=== PATIENT | female | born 1930 | race Caucasian/White ===

== ENCOUNTER 2016-09-28 15:57 | Inpatient (IN) | payer MEDICARE, MEDICAID ==
[~2016-09-28] VITALS: Ht 154.9 cm; Wt 84.0 kg
[~2016-09-28 15:57] MED LIST: ADVAIR 250/28 DISKUS IH; ADVIL200 MG PO; ALAVERT10 M1 PO; ALBUTEROL0.83 MG/ML IH; AMOXICILLIN 8751 TAB PO; AMOXICILLIN/CLA1 TA1 PO; ATIVAN 0.50.5 MG/TAB PO; ATIVAN0.5 MG PO; ATROVENT I0.2 MG/1 M IH; BACTRIM 400 MG-1 TAB; BACTRIM DS 8001 TAB PO; BENADRYL25 M2 PO; CELEXA 20MG20 MG/TAB PO; CLARITIN 1010 MG/TAB PO; CLIMARA0.05 MG/24 TD; CODEINE PO; COMBIVENT INH14.7 GM IH; DALIRESP500 MCG PO; DESYREL 50MG50 MG PO; DIFLUCAN 100MG100 MG PO; DOXYCYCLINE 10100 MG PO; FLONASE NASAL S16 GM NS; IMODIUM 2MG CAPS2 MG PO; INCRUSE EL62.5 MCG/A IH; IPRATROPIUM BROM3 M1 IH; LASIX 20MG TABL20 MG PO; LEVAQUIN 5500 MG/TA1 PO; LEVAQUIN 750MG750 M1 PO; LEXAPRO10 MG PO; LEXAPRO20 MG PO; LORATADINE1 POW; MACROBID 1100 MG/CAP PO; MEDROL 4MG DOSPA4 MG PO; MUCINEX 60600 MG/TA1 PO; MUCINEX D 600 M1 TER PO; MUCINEX PO; MUCINEX1200 MG PO; NEBULIZER; NEXIUM 40MG40 MG PO; NORCO 325 MG-7.1 TAB PO; NYSTATIN POWDER15 GM TOP; OXYGEN; PHENERGAN W/CO120 M1 PO; PREDNISONE10 MG PO; PREDNISONE20 MG PO; PRILOSEC; PROMETHAZINE V473 M2 PO; PYRIDIUM200 M1 PO; RT ADVAIR 228 DISKUS IH; RT SPIRIVA18 MCG IH; SALINE 45 ML45 ML NS; SALINE NASAL SP45 ML NS; SEROQUEL 1100 MG/TAB PO; SEROQUEL 2525 MG/TAB PO; SINGULAIR; SINGULAIR 110 MG/TAB PO; SODIUM FLUORIDE DE; SPIRIVA INH IH; THEO-24100 MG PO; THEO-DUR 2200 MG/TAB PO; THEODUR 200MG PO; TIZANIDINE; ULTRAM 50MG TAB50 MG PO; UNIPHYL 400MG400 MG PO; VITAMIN D 400400 IU PO; VITAMINS; XOPENEX 0.0.63 MG/3 IH; XOPENEX HF0.045 MG/A IH; XOPENEX0.63 MG/3 IH; ZANAFLEX CAPSULE2 MG PO; ZANAFLEX CAPSULE4 MG PO; ZANAFLEX2 MG PO; ZANTAC 300300 MG PO; ZOFRAN 4MG T4 MG/TAB PO; [UNRECOGNIZED DRUG - OTHER]; [UNRECOGNIZED DRUG - OTHER] PO; [UNRECOGNIZED DRUG - SUPPLY] NS
[2016-09-28 16:38] LABS: VENOUS BLOOD GAS BE 1.2 (-4-4); VENOUS BLOOD GAS SAO2 34.4 % (60-80)
[2016-09-28 16:39] LABS: VENOUS BLOOD GAS SITE VENIPUNCTURE
[2016-09-28 16:41] LABS: INFLUENZA B NEGATIVE
[2016-09-28 16:48] LABS: HEMATOCRIT 50.5 % (37.0-47.0); HEMOGLOBIN 15.8 g/dl (12.5-16.0); MEAN CELL VOLUME 88 fl (80.0-100.0); MEAN CORPUSCULAR HEMOGLOBIN 28 pg (27.0-31.0); MEAN CORPUSCULAR HGB CONC 31 g/dl (33.0-37.0); PLATELET COUNT 479 K/mm3 (130-400); RED BLOOD COUNT 5.73 M/mm3 (4.10-5.30); REDCELL DISTRIBUTION WIDTH-CV 15.5 % (11.5-14.5)
[2016-09-28 16:54] LABS: ADD PATHOLOGY DIFF REVIEW NO; WHITE BLOOD COUNT 20.4 K/mm3 (4.8-10.8)
[2016-09-28 17:02] LABS: BAND 4 % (0-10); BASOPHIL 1 % (0-2); EOSINOPHIL 1 % (0-4); NEUTROPHILS 86 % (42.0-75.2); TOTAL CELLS COUNTED 102
[2016-09-28 17:03] LABS: POLYCHROMASIA 1+
[2016-09-28 17:04] LABS: POIKILOCYTOSIS 2+
[2016-09-28 17:11] LABS: ADJUSTED CALCIUM 9.5 mg/dL (8.4-10.2); ALBUMIN 4.3 gm/dL (3.5-5.0); BILIRUBIN,TOTAL 1.3 mg/dL (0.0-1.0); CALCIUM 9.7 mg/dL (8.4-10.2); CREATININE, serum 0.66 mg/dL (0.52-1.25); POTASSIUM 4.8 mmol/L (3.4-5.0); TOTAL PROTEIN 8.1 gm/dL (6.4-8.2)
[2016-09-28 20:00] VITALS: BP 154/97; PULSE 128; TEMP 98.5
[2016-09-28 20:10] VITALS: BP 134/78; PULSE 130; TEMP 98.5
[2016-09-28 21:09] LABS: SALICYLATE < 1.0 mg/dL
[2016-09-28 21:27] LABS: INR 1.1 (0.8-3.0); PROTHROMBIN TIME 11.8 SECONDS (9.7-12.8)
[2016-09-28 21:30] LABS: TROPONIN-I < 0.012 ng/mL (0.000-0.034)
[2016-09-28 23:37] LABS: PH 5 (5-8); SQUAMOUS EPITHELIAL 0-2 /hpf; URINE APPEARANCE Clear; URINE BACTERIA None Seen /hpf; URINE BILIRUBIN Negative (NEGATIVE); URINE BLOOD 2+ (NEGATIVE); URINE COLOR Yellow; URINE GLUCOSE Negative (NEGATIVE); URINE KETONE Negative (NEGATIVE); URINE RBC 0-2 /hpf; URINE UROBILINOGEN Negative (NEGATIVE); URINE WBC 0-2 /hpf
[2016-09-29] VITALS (184 sets, daily range): BP systolic 97–117; BP diastolic 52–79; PULSE 100–123; TEMP 98–98.9; O2SAT 88–97
[2016-09-29 00:26] LABS: MAGNESIUM 1.9 mg/dL (1.6-2.3); PHOSPHOROUS 3.3 mg/dL (2.5-4.5)
[2016-09-29 05:10] LABS: ARTERIAL BLD GAS O2 SATURATION 95.4 % (92-100); ARTERIAL BLD GAS TCO2 CT 23.8; ARTERIAL BLOOD GAS BASE EXCESS -2.8 (-2-2); ARTERIAL BLOOD GAS HCO3 22.5 meq/L (22-26); ARTERIAL BLOOD GAS PO2 75.3 mmHg (80-100); ARTERIAL BLOOD GAS pH 7.36 (7.35-7.45)
[2016-09-29 05:11] LABS: ALLEN TEST YES; ALLENS TEST RESULT PASS; ATS? YES
[2016-09-29 06:06] LABS: ARTERIAL BLD GAS O2 SATURATION 95.4 % (92-100); ARTERIAL BLD GAS TCO2 CT 23.8; ARTERIAL BLOOD GAS BASE EXCESS -2.8 (-2-2); ARTERIAL BLOOD GAS HCO3 22.5 meq/L (22-26); ARTERIAL BLOOD GAS PHT 7.36 C (7.35-7.45); ARTERIAL BLOOD GAS PO2 75.3 mmHg (80-100); ARTERIAL BLOOD GAS PO2T 75.3 (80-100); ARTERIAL BLOOD GAS pH 7.36 (7.35-7.45); OXYHEMOGLOBIN 93.9 %
[2016-09-29 06:35] LABS: HEMATOCRIT 41.7 % (37.0-47.0); MEAN CELL VOLUME 88 fl (80.0-100.0); MEAN CORPUSCULAR HGB CONC 32 g/dl (33.0-37.0); MEAN PLATELET VOLUME 9.2 fl (7.4-10.4); RED BLOOD COUNT 4.76 M/mm3 (4.10-5.30); REDCELL DISTRIBUTION WIDTH-CV 15.8 % (11.5-14.5)
[2016-09-29 06:50] LABS: ADJUSTED CALCIUM 8.4 mg/dL (8.4-10.2); ALBUMIN 3.4 gm/dL (3.5-5.0); BILIRUBIN,TOTAL 1.3 mg/dL (0.0-1.0); CALCIUM 7.9 mg/dL (8.4-10.2); CREATININE, serum 0.67 mg/dL (0.52-1.25); POTASSIUM 4.6 mmol/L (3.4-5.0); TOTAL PROTEIN 6.5 gm/dL (6.4-8.2)
[2016-09-29 07:12] LABS: VENOUS BLOOD GAS BE 0.7 (-4-4); VENOUS BLOOD GAS SAO2 70.2 % (60-80)
[2016-09-29 07:23] LABS: HEMOGLOBIN 13.2 g/dl (12.5-16.0); INR 1.2 (0.8-3.0); MEAN CORPUSCULAR HEMOGLOBIN 28 pg (27.0-31.0); PLATELET COUNT 378 K/mm3 (130-400); PROTHROMBIN TIME 13.4 SECONDS (9.7-12.8); WHITE BLOOD COUNT 28.7 K/mm3 (4.8-10.8)
[2016-09-29 07:24] LABS: ADD PATHOLOGY DIFF REVIEW NO
[2016-09-29 11:28] LABS: VENOUS BLOOD GAS BE -2.8 (-4-4); VENOUS BLOOD GAS SAO2 47.8 % (60-80)
[2016-09-29 12:25] LABS: ATS? YES
[2016-09-29 13:19] LABS: ANISOCYTOSIS 1+; BAND 20 % (0-10); NEUTROPHILS 77 % (42.0-75.2); PLATELET ESTIMATE NORMAL (NORMAL); TOTAL CELLS COUNTED 100; TOXIC GRANULATION PRESENT
[2016-09-29 16:58] LABS: VENOUS BLOOD GAS BE -2.5 (-4-4); VENOUS BLOOD GAS SAO2 75.8 % (60-80)
[2016-09-29 16:59] LABS: VENOUS BLOOD GAS SITE CENTRAL LINE
[2016-09-29 17:00] LABS: VENOUS BLOOD GAS SITE CENTRAL LINE
[2016-09-29 17:00] LABS: VENOUS BLOOD GAS SITE CENTRAL LINE
[2016-09-29 20:51] LABS: VENOUS BLOOD GAS BE -2.5 (-4-4); VENOUS BLOOD GAS SAO2 76.6 % (60-80)
[2016-09-29 20:52] LABS: VENOUS BLOOD GAS SITE CENTRAL LINE
[2016-09-30] VITALS (712 sets, daily range): BP systolic 100–136; BP diastolic 54–92; PULSE 92–120; TEMP 97.3–98; O2SAT 88–100
[2016-09-30 05:27] LABS: BASO % 0.2 % (0.0-2.0); EOS % 0.1 % (0-4.0); GRAN # 16.8 (1.4-6.5); GRAN % 90.9 % (42.2-75.2); LYMPH # 0.9 (1.2-3.4); LYMPH % 4.7 % (20.0-51.0); MEAN CELL VOLUME 87 fl (80.0-100.0); MEAN CORPUSCULAR HEMOGLOBIN 28 pg (27.0-31.0); MEAN CORPUSCULAR HGB CONC 32 g/dl (33.0-37.0); MEAN PLATELET VOLUME 9.2 fl (7.4-10.4); MONO # 0.6 (0.1-0.6); MONO % 3.2 % (1.7-9.3); PLATELET COUNT 369 K/mm3 (130-400); RED BLOOD COUNT 4.25 M/mm3 (4.10-5.30); WHITE BLOOD COUNT 18.5 K/mm3 (4.8-10.8)
[2016-09-30 05:34] LABS: HEMOGLOBIN 11.7 g/dl (12.5-16.0)
[2016-09-30 05:40] LABS: ADJUSTED CALCIUM 8.2 mg/dL (8.4-10.2); ALBUMIN 3.2 gm/dL (3.5-5.0); BILIRUBIN,TOTAL 0.9 mg/dL (0.0-1.0); CALCIUM 7.6 mg/dL (8.4-10.2); CREATININE, serum 0.61 mg/dL (0.52-1.25); POTASSIUM 4.1 mmol/L (3.4-5.0); TOTAL PROTEIN 6.2 gm/dL (6.4-8.2)
[2016-09-30 05:48] LABS: INR 1.1 (0.8-3.0); PROTHROMBIN TIME 12.3 SECONDS (9.7-12.8)
[2016-09-30 06:01] LABS: ARTERIAL BLD GAS O2 SATURATION 95.3 % (92-100); ARTERIAL BLD GAS TCO2 CT 24.4; ARTERIAL BLOOD GAS BASE EXCESS -1.3 (-2-2); ARTERIAL BLOOD GAS HCO3 23.2 meq/L (22-26); ARTERIAL BLOOD GAS PO2 76.1 mmHg (80-100); ARTERIAL BLOOD GAS PO2T 76.1 (80-100); OXYHEMOGLOBIN 94.6 %
[2016-09-30 06:03] LABS: ALLEN TEST YES; ALLENS TEST RESULT PASS; ATS? YES
[2016-10-01] VITALS (54 sets, daily range): BP systolic 128–165; BP diastolic 73–110; PULSE 94–124; TEMP 97.6–98.3; O2SAT 90–96
[2016-10-01 05:22] LABS: BASO % 0.2 % (0.0-2.0); GRAN % 94.1 % (42.2-75.2); LYMPH # 0.3 (1.2-3.4); LYMPH % 2.4 % (20.0-51.0); MEAN CELL VOLUME 89 fl (80.0-100.0); MEAN CORPUSCULAR HGB CONC 32 g/dl (33.0-37.0); MEAN PLATELET VOLUME 9.2 fl (7.4-10.4); MONO # 0.2 (0.1-0.6); MONO % 1.9 % (1.7-9.3); PLATELET COUNT 353 K/mm3 (130-400); RED BLOOD COUNT 4.02 M/mm3 (4.10-5.30); REDCELL DISTRIBUTION WIDTH-CV 16.2 % (11.5-14.5); WHITE BLOOD COUNT 12.8 K/mm3 (4.8-10.8)
[2016-10-01 05:37] LABS: ALBUMIN 3.2 gm/dL (3.5-5.0); BILIRUBIN,TOTAL 0.7 mg/dL (0.0-1.0); CALCIUM 7.4 mg/dL (8.4-10.2); CREATININE, serum 0.52 mg/dL (0.52-1.25); POTASSIUM 4.1 mmol/L (3.4-5.0); TOTAL PROTEIN 6.1 gm/dL (6.4-8.2)
[2016-10-01 05:49] LABS: HEMATOCRIT 35.6 % (37.0-47.0); HEMOGLOBIN 11.2 g/dl (12.5-16.0); MEAN CORPUSCULAR HEMOGLOBIN 28 pg (27.0-31.0)
[2016-10-01 05:49] LABS: ARTERIAL BLD GAS O2 SATURATION 94.3 % (92-100); ARTERIAL BLD GAS TCO2 CT 23.4; ARTERIAL BLOOD GAS HCO3 22.1 meq/L (22-26); ARTERIAL BLOOD GAS PHT 7.36 C (7.35-7.45); ARTERIAL BLOOD GAS PO2 72.6 mmHg (80-100); ARTERIAL BLOOD GAS PO2T 72.6 (80-100); ARTERIAL BLOOD GAS pH 7.36 (7.35-7.45); OXYHEMOGLOBIN 93.5 %
[2016-10-01 05:52] LABS: ALLEN TEST YES; ALLENS TEST RESULT PASS; ATS? YES
[2016-10-01 06:17] LABS: INR 1.1 (0.8-3.0); PROTHROMBIN TIME 12.4 SECONDS (9.7-12.8)
[2016-10-02] VITALS (7 sets, daily range): BP systolic 139–162; BP diastolic 73–92; PULSE 104–118; TEMP 97.5–98.1
[2016-10-03 05:01] VITALS: BP 139/85; PULSE 99; TEMP 98.8
[2016-10-03 08:01] VITALS: BP 166/87; PULSE 104; TEMP 97.8
[2016-10-03 11:51] VITALS: BP 139/86; PULSE 115; TEMP 98
[2016-10-03] MEDS ORDERED: PREDNISONE20 MG PO (12:12)
[2016-10-03] MEDS ORDERED: ZITHROMAX 250M250 MG PO (12:13)
[2016-10-03 13:38] VITALS: BP 139/86; PULSE 115; TEMP 98
== END 2016-10-03 14:00 | DRG 871 ==
LOC: COL.ER 15:57 → IMCU 17:42 → MEDICAL 17:42 → ICU 17:42 → IMCU 09-29 13:26 → MEDICAL 10-01 15:26
PROVIDERS: Emergency Medicine; Internal Medicine; Internal Medicine Pulmonary Disease
PROC: 0BJ08ZZ Inspection of Tracheobronchial Tree, Via Natural or Artificial Opening Endoscopic (ICD-10-PCS; 2016-09-30)
PROC: 0B9B8ZX Drainage of Left Lower Lobe Bronchus, Via Natural or Artificial Opening Endoscopic, Diagnostic (ICD-10-PCS; principal; 2016-09-30 12:00)
DX: A41.9 Sepsis, unspecified organism (principal); J96.22 Acute and chronic respiratory failure with hypercapnia; J96.21 Acute and chronic respiratory failure with hypoxia; J18.9 Pneumonia, unspecified organism; J44.0 Chronic obstructive pulmonary disease with (acute) lower respiratory infection; J44.1 Chronic obstructive pulmonary disease with (acute) exacerbation; J98.11 Atelectasis; Z66 Do not resuscitate; Z87.891 Personal history of nicotine dependence; Z85.118 Personal history of other malignant neoplasm of bronchus and lung; B34.2 Coronavirus infection, unspecified
CPT/HCPCS: 99223-AI; 99232-AI; 99239; A4315; C9113; J0692; J1650; J1720; J1815; J1956; J2060; J2185; J2543; J2704; J2920; J2930; J3370; J7030; J7040; J7050; J7512

== ENCOUNTER 2017-01-29 20:42 | Emergency (ER) | payer MEDICARE, MEDICAID ==
[~2017-01-29] VITALS: Ht 152.4 cm; Wt 72.7 kg
[~2017-01-29 20:42] MED LIST changes: +ZITHROMAX 250M250 MG PO
[2017-01-29] MEDS ORDERED: EFFEXOR-XR150 MG PO (21:15)
[2017-01-29] MEDS ORDERED: DALIRESP500 MCG PO (21:16)
[2017-01-29 21:29] LABS: BASO # 0.1 (0.0-0.2); BASO % 0.7 % (0.0-2.0); EOS # 0.2 (0.0-0.7); EOS % 2.3 % (0-4.0); GRAN # 5.4 (1.4-6.5); GRAN % 66.8 % (42.2-75.2); HEMATOCRIT 50.3 % (37.0-47.0); HEMOGLOBIN 16.3 g/dl (12.5-16.0); LYMPH # 1.7 (1.2-3.4); LYMPH % 20.9 % (20.0-51.0); MEAN CELL VOLUME 85 fl (80.0-100.0); MEAN CORPUSCULAR HEMOGLOBIN 28 pg (27.0-31.0); MEAN CORPUSCULAR HGB CONC 32 g/dl (33.0-37.0); MEAN PLATELET VOLUME 9.4 fl (7.4-10.4); MONO # 0.7 (0.1-0.6); MONO % 8.9 % (1.7-9.3); PLATELET COUNT 461 K/mm3 (130-400); RED BLOOD COUNT 5.91 M/mm3 (4.10-5.30); REDCELL DISTRIBUTION WIDTH-CV 13.9 % (11.5-14.5); WHITE BLOOD COUNT 8.1 K/mm3 (4.8-10.8)
[2017-01-29 21:33] VITALS: TEMP 98.4
[2017-01-29 21:40] LABS: PH 5 (5-8); URINE APPEARANCE Clear; URINE BACTERIA None Seen /hpf; URINE BILIRUBIN Negative (NEGATIVE); URINE BLOOD 2+ (NEGATIVE); URINE COLOR Yellow; URINE GLUCOSE Negative (NEGATIVE); URINE KETONE Trace (NEGATIVE); URINE UROBILINOGEN Negative (NEGATIVE); URINE WBC 0-2 /hpf
[2017-01-29 21:51] LABS: ADJUSTED CALCIUM 9.6 mg/dL (8.4-10.2); ALANINE AMINOTRANSFERASE 21 U/L (9-52); ALBUMIN 4.3 gm/dL (3.5-5.0); ALKALINE PHOSPHATASE 73 U/L (50-136); ANION GAP 14 mmol/L (7-16); BLOOD UREA NITROGEN 10 mg/dL (7-17); CALCIUM 9.8 mg/dL (8.4-10.2); CARBON DIOXIDE 26 mmol/L (22-30); CHLORIDE 95 mmol/L (98-107); CREATININE, serum 0.74 mg/dL (0.52-1.25); GLUCOSE 99 mg/dL (74-106); LIPASE 158 U/L (23-300); POTASSIUM 4.1 mmol/L (3.4-5.0); SODIUM 135 mmol/L (137-145); TOTAL PROTEIN 7.5 gm/dL (6.4-8.2)
[2017-01-29 22:03] LABS: TROPONIN-I < 0.012 ng/mL (0.000-0.034)
[2017-01-29 23:41] VITALS: BP 139/94; PULSE 100
== END 2017-01-29 23:43 | disposition home or self-care (01) ==
LOC: COL.ER 20:42
PROVIDERS: Emergency Medicine
DX: R10.31 Right lower quadrant pain (principal); R41.0 Disorientation, unspecified; J44.9 Chronic obstructive pulmonary disease, unspecified; Z87.891 Personal history of nicotine dependence; Z90.710 Acquired absence of both cervix and uterus
CPT/HCPCS: J7030; Q9967

== ENCOUNTER 2017-03-21 13:12 | Emergency (ER) | payer MEDICARE, MEDICAID ==
[~2017-03-21] VITALS: Ht 152.4 cm; Wt 70.9 kg
[~2017-03-21 13:12] MED LIST changes: +EFFEXOR-XR150 MG PO
[2017-03-21 13:18] VITALS: TEMP 98.6
[2017-03-21] MEDS ORDERED: INCRUSE EL62.5 MCG/A IH (13:44)
[2017-03-21] MEDS ORDERED: LEXAPRO20 MG PO (13:44)
[2017-03-21] MEDS ORDERED: PROBIOTIC ACID1 EAC3 PO (13:45)
[2017-03-21 14:07] LABS: BASO # 0.1 (0.0-0.2); BASO % 0.5 % (0.0-2.0); EOS # 0.1 (0.0-0.7); EOS % 0.8 % (0-4.0); GRAN # 8.2 (1.4-6.5); GRAN % 83.1 % (42.2-75.2); HEMATOCRIT 47.4 % (37.0-47.0); LYMPH # 0.8 (1.2-3.4); LYMPH % 7.9 % (20.0-51.0); MEAN CELL VOLUME 84 fl (80.0-100.0); MEAN CORPUSCULAR HEMOGLOBIN 26 pg (27.0-31.0); MEAN CORPUSCULAR HGB CONC 32 g/dl (33.0-37.0); MEAN PLATELET VOLUME 9.5 fl (7.4-10.4); MONO # 0.7 (0.1-0.6); MONO % 7.2 % (1.7-9.3); PLATELET COUNT 424 K/mm3 (130-400); RED BLOOD COUNT 5.68 M/mm3 (4.10-5.30); REDCELL DISTRIBUTION WIDTH-CV 14.6 % (11.5-14.5); WHITE BLOOD COUNT 9.9 K/mm3 (4.8-10.8)
[2017-03-21 14:08] LABS: PROTHROMBIN TIME 10.8 SECONDS (9.7-12.8)
[2017-03-21 14:44] LABS: ADJUSTED CALCIUM 9.2 mg/dL (8.4-10.2); ALANINE AMINOTRANSFERASE 14 U/L (9-52); ALBUMIN 4.1 gm/dL (3.5-5.0); ALKALINE PHOSPHATASE 66 U/L (50-136); ANION GAP 12 mmol/L (7-16); BILIRUBIN,TOTAL 0.5 mg/dL (0.0-1.0); BLOOD UREA NITROGEN 10 mg/dL (7-17); CALCIUM 9.3 mg/dL (8.4-10.2); CARBON DIOXIDE 26 mmol/L (22-30); CHLORIDE 99 mmol/L (98-107); CREATININE, serum 0.73 mg/dL (0.52-1.25); GLUCOSE 158 mg/dL (74-106); POTASSIUM 3.8 mmol/L (3.4-5.0); SODIUM 138 mmol/L (137-145); TOTAL PROTEIN 7.3 gm/dL (6.4-8.2)
[2017-03-21 14:56] LABS: TROPONIN-I < 0.012 ng/mL (0.000-0.034)
[2017-03-21 15:57] VITALS: BP 122/81; PULSE 97
== END 2017-03-21 15:45 | disposition home or self-care (01) ==
LOC: COL.ER 13:12
PROVIDERS: Emergency Medicine
DX: G45.9 Transient cerebral ischemic attack, unspecified (principal); M62.81 Muscle weakness (generalized); R20.0 Anesthesia of skin; R47.81 Slurred speech; J44.9 Chronic obstructive pulmonary disease, unspecified; Z87.891 Personal history of nicotine dependence; Z90.710 Acquired absence of both cervix and uterus; Z85.118 Personal history of other malignant neoplasm of bronchus and lung

== ENCOUNTER 2017-03-26 11:07 | Emergency (ER) | payer MEDICARE, MEDICAID ==
[~2017-03-26] VITALS: Ht 152.4 cm; Wt 69.1 kg
[~2017-03-26 11:07] MED LIST changes: +PROBIOTIC ACID1 EAC3 PO
[2017-03-26 11:13] VITALS: TEMP 98.4
[2017-03-26 12:37] VITALS: BP 133/80; PULSE 91
== END 2017-03-26 12:38 | disposition home or self-care (01) ==
LOC: COL.ER 11:07
DX: S60.222A Contusion of left hand, initial encounter (principal); W19.XXXA Unspecified fall, initial encounter

== ENCOUNTER → 2017-12-26 | Outpatient (CLI) | payer MEDICARE, MEDICAID | LOC: MC.RAD 10:27 | DX: Z12.31 Encounter for screening mammogram for malignant neoplasm of breast (principal) ==

== ENCOUNTER 2018-05-19 16:56 | Inpatient (IN) | payer MEDICARE, MEDICAID ==
[~2018-05-19] VITALS: Ht 152.4 cm; Wt 77.9 kg
[2018-05-19 17:49] LABS: BASO # 0.1 (0.0-0.2); BASO % 0.5 % (0.0-2.0); EOS # 0.1 (0.0-0.7); EOS % 0.5 % (0-4.0); GRAN # 11.5 (1.4-6.5); HEMATOCRIT 45.9 % (37.0-47.0); HEMOGLOBIN 14.4 g/dl (12.5-16.0); LYMPH # 0.7 (1.2-3.4); LYMPH % 5.5 % (20.0-51.0); MEAN CELL VOLUME 88 fl (80.0-100.0); MEAN CORPUSCULAR HEMOGLOBIN 28 pg (27.0-31.0); MEAN CORPUSCULAR HGB CONC 31 g/dl (33.0-37.0); MEAN PLATELET VOLUME 9.7 fl (7.4-10.4); MONO # 0.8 (0.1-0.6); MONO % 6.1 % (1.7-9.3); PLATELET COUNT 439 K/mm3 (130-400); RED BLOOD COUNT 5.23 M/mm3 (4.10-5.30); REDCELL DISTRIBUTION WIDTH-CV 14.4 % (11.5-14.5)
[2018-05-19 17:55] LABS: BILIRUBIN,TOTAL 0.9 mg/dL (0.0-1.0); CALCIUM 8.9 mg/dL (8.4-10.2); CREATININE, serum 0.72 mg/dL (0.52-1.25); POTASSIUM 4.1 mmol/L (3.4-5.0); TOTAL PROTEIN 7.3 gm/dL (6.4-8.2)
[2018-05-19] MEDS ORDERED: FLONASE SENSIM9.9 ML NS (21:20)
[2018-05-19] MEDS ORDERED: NEURONTIN300 MG/CAP PO (21:21)
[2018-05-19] MEDS ORDERED: PATADAY 2.5 ML2.5 ML OU (21:26)
[2018-05-19 22:09] VITALS: BP 132/82; PULSE 117; TEMP 99.1
[2018-05-19] MEDS ORDERED: BENGAY TP (23:14)
[2018-05-20 02:23] VITALS: BP 127/75; PULSE 108; TEMP 98.2
[2018-05-20 04:23] VITALS: BP 170/64; PULSE 101; TEMP 98.2
[2018-05-20 06:52] LABS: HEMATOCRIT 46.8 % (37.0-47.0); HEMOGLOBIN 14.6 g/dl (12.5-16.0); MEAN CELL VOLUME 87 fl (80.0-100.0); MEAN CORPUSCULAR HEMOGLOBIN 27 pg (27.0-31.0); MEAN CORPUSCULAR HGB CONC 31 g/dl (33.0-37.0); MEAN PLATELET VOLUME 9.8 fl (7.4-10.4); PLATELET COUNT 410 K/mm3 (130-400); RED BLOOD COUNT 5.36 M/mm3 (4.10-5.30); REDCELL DISTRIBUTION WIDTH-CV 14.3 % (11.5-14.5)
[2018-05-20 07:11] LABS: CALCIUM 8.6 mg/dL (8.4-10.2); CREATININE, serum 0.58 mg/dL (0.52-1.25); POTASSIUM 4.4 mmol/L (3.4-5.0)
[2018-05-20 07:18] LABS: BAND 10 % (0-10); BASOPHIL 1 % (0-2); LYMPHOCYTE 2 % (20.0-51.0); NEUTROPHILS 86 % (42.0-75.2); PLATELET ESTIMATE INCREASED (NORMAL)
[2018-05-20 08:44] VITALS: BP 112/59; PULSE 115; TEMP 98.2
[2018-05-20 11:14] VITALS: BP 112/56; PULSE 112; TEMP 98.2
[2018-05-20 15:58] VITALS: BP 109/52; PULSE 119; TEMP 98.2
[2018-05-20 17:19] LABS: COLLECTION METHOD CLEAN CATCH
[2018-05-20 17:29] LABS: MUCOUS Present /lpf; PH 5 (5-8); URINE APPEARANCE Hazy; URINE BACTERIA None Seen /hpf; URINE BILIRUBIN Negative (NEGATIVE); URINE BLOOD 1+ (NEGATIVE); URINE COLOR Yellow; URINE GLUCOSE Negative (NEGATIVE); URINE KETONE Trace (NEGATIVE); URINE LEUKOCYTE ESTERASE Negative (NEGATIVE); URINE NITRATE Negative (NEGATIVE); URINE PROTEIN(semi-quant) 1+ (NEGATIVE); URINE UROBILINOGEN Negative (NEGATIVE)
[2018-05-20 20:15] VITALS: BP 107/75; PULSE 110; TEMP 97.5
[2018-05-21 00:14] VITALS: BP 111/50; PULSE 17; TEMP 98.5
[2018-05-21 00:48] VITALS: BP 105/67; PULSE 75; TEMP 97.2
[2018-05-21 06:24] LABS: HEMATOCRIT 45.8 % (37.0-47.0); HEMOGLOBIN 14.3 g/dl (12.5-16.0); MEAN CELL VOLUME 87 fl (80.0-100.0); MEAN CORPUSCULAR HEMOGLOBIN 27 pg (27.0-31.0); MEAN CORPUSCULAR HGB CONC 31 g/dl (33.0-37.0); MEAN PLATELET VOLUME 10.1 fl (7.4-10.4); PLATELET COUNT 467 K/mm3 (130-400); RED BLOOD COUNT 5.27 M/mm3 (4.10-5.30); REDCELL DISTRIBUTION WIDTH-CV 14.5 % (11.5-14.5)
[2018-05-21 06:33] LABS: CALCIUM 9.4 mg/dL (8.4-10.2); CREATININE, serum 0.65 mg/dL (0.52-1.25); POTASSIUM 4.1 mmol/L (3.4-5.0)
[2018-05-21 07:20] LABS: BAND 24 % (0-10); LYMPHOCYTE 2 % (20.0-51.0); NEUTROPHILS 70 % (42.0-75.2); PLATELET ESTIMATE INCREASED (NORMAL)
[2018-05-21 07:21] LABS: HYPOCHROMIA 2+
[2018-05-21 08:30] VITALS: BP 113/52; PULSE 112; PULSE 45; TEMP 98.8
[2018-05-21 12:02] VITALS: BP 123/59; PULSE 107; TEMP 98.4
[2018-05-21 15:13] VITALS: BP 115/52; PULSE 118; TEMP 98.1
[2018-05-21 19:54] VITALS: BP 138/67; PULSE 116; TEMP 97.8
[2018-05-22 00:25] VITALS: BP 127/78; BP 144/78; PULSE 60; TEMP 97.8
[2018-05-22 06:34] LABS: BASO % 0.1 % (0.0-2.0); GRAN # 11.6 (1.4-6.5); GRAN % 89.8 % (42.2-75.2); HEMATOCRIT 45.1 % (37.0-47.0); LYMPH # 0.5 (1.2-3.4); LYMPH % 4.1 % (20.0-51.0); MEAN CELL VOLUME 87 fl (80.0-100.0); MEAN CORPUSCULAR HEMOGLOBIN 27 pg (27.0-31.0); MEAN CORPUSCULAR HGB CONC 31 g/dl (33.0-37.0); MEAN PLATELET VOLUME 9.8 fl (7.4-10.4); MONO # 0.7 (0.1-0.6); MONO % 5.3 % (1.7-9.3); PLATELET COUNT 488 K/mm3 (130-400); RED BLOOD COUNT 5.18 M/mm3 (4.10-5.30); REDCELL DISTRIBUTION WIDTH-CV 14.6 % (11.5-14.5)
[2018-05-22 06:46] LABS: CALCIUM 9.3 mg/dL (8.4-10.2); CREATININE, serum 0.61 mg/dL (0.52-1.25); POTASSIUM 4.1 mmol/L (3.4-5.0)
[2018-05-22 09:10] VITALS: BP 130/83; PULSE 103; TEMP 98
[2018-05-22] MEDS ORDERED: LEVAQUIN 5500 MG/TA1 PO (09:42)
[2018-05-22] MEDS ORDERED: RT ADVAIR HFA 2312 G IH (09:42)
[2018-05-22] MEDS ORDERED: MUCINEX 60600 MG/TA1 PO (09:43)
[2018-05-22] MEDS ORDERED: PREDNISONE10 MG PO (09:45)
[2018-05-22 12:16] VITALS: BP 131/75; PULSE 108; TEMP 98.1
[2018-05-22] MEDS ORDERED: ZOFRAN ODT4 MG PO (14:23)
== END 2018-05-22 16:05 | disposition home health service (06) | DRG 191 ==
LOC: COL.ER 16:56 → MEDICAL 20:41
PROVIDERS: Emergency Medicine; Internal Medicine; Nurse Practitioner; Physician Assistant
DX: J44.1 Chronic obstructive pulmonary disease with (acute) exacerbation (principal); E87.2 Acidosis; Z66 Do not resuscitate; Z85.110 Personal history of malignant carcinoid tumor of bronchus and lung; G62.9 Polyneuropathy, unspecified; Z87.891 Personal history of nicotine dependence; F41.9 Anxiety disorder, unspecified
CPT/HCPCS: 99223-AI; 99232-AI; G0378; J0692; J1650; J1956; J2405; J2930; J7030; J7512; Q9967

== ENCOUNTER 2018-08-13 15:12 | Inpatient (IN) | payer MEDICARE, MEDICAID ==
[~2018-08-13] VITALS: Ht 152.4 cm; Wt 76.5 kg
[~2018-08-13 15:12] MED LIST changes: +BENGAY TP; +FLONASE SENSIM9.9 ML NS; +NEURONTIN300 MG/CAP PO; +PATADAY 2.5 ML2.5 ML OU; +RT ADVAIR HFA 2312 G IH; +ZOFRAN ODT4 MG PO
[2018-08-13 15:30] VITALS: BP 138/87; PULSE 111; TEMP 98.7
[2018-08-13] MEDS ORDERED: NYAMYC100000 U/G TP (16:24)
[2018-08-13] MEDS ORDERED: GAS RELIEF 8080 MG PO (16:24)
[2018-08-13] MEDS ORDERED: B-121000 MCG PO (16:25)
[2018-08-13] MEDS ORDERED: KLONOPIN 0.5MG0.5 MG PO (16:25)
[2018-08-13] MEDS ORDERED: MONODOX100 PO (16:26)
[2018-08-13] MEDS ORDERED: PREDNISONE10 MG PO (16:27)
[2018-08-13 16:58] LABS: BASO # 0.1 (0.0-0.2); BASO % 0.9 % (0.0-2.0); EOS # 0.2 (0.0-0.7); EOS % 1.3 % (0-4.0); GRAN # 8.1 (1.4-6.5); GRAN % 72.5 % (42.2-75.2); HEMATOCRIT 51.5 % (37.0-47.0); HEMOGLOBIN 16.7 g/dl (12.5-16.0); LYMPH # 1.9 (1.2-3.4); LYMPH % 17.3 % (20.0-51.0); MEAN CELL VOLUME 86 fl (80.0-100.0); MEAN CORPUSCULAR HEMOGLOBIN 28 pg (27.0-31.0); MEAN CORPUSCULAR HGB CONC 32 g/dl (33.0-37.0); MEAN PLATELET VOLUME 9.3 fl (7.4-10.4); MONO # 0.9 (0.1-0.6); MONO % 7.6 % (1.7-9.3); PLATELET COUNT 498 K/mm3 (130-400); RED BLOOD COUNT 6.02 M/mm3 (4.10-5.30); REDCELL DISTRIBUTION WIDTH-CV 15.1 % (11.5-14.5)
[2018-08-13 17:10] LABS: ALBUMIN 4.1 gm/dL (3.5-5.0); BILIRUBIN,TOTAL 0.7 mg/dL (0.0-1.0); CREATININE, serum 0.75 mg/dL (0.52-1.25); POTASSIUM 3.7 mmol/L (3.4-5.0); TOTAL PROTEIN 7.1 gm/dL (6.4-8.2)
[2018-08-13 19:01] VITALS: BP 89/53; PULSE 100; TEMP 98.7
[2018-08-13 22:59] VITALS: BP 103/65; PULSE 95
[2018-08-13 23:02] VITALS: BP 105/61; PULSE 101
[2018-08-13 23:27] VITALS: BP 96/57; PULSE 102; TEMP 97.4
[2018-08-14 03:18] VITALS: BP 131/61; PULSE 90; TEMP 98
[2018-08-14 07:50] LABS: BASO # 0.1 (0.0-0.2); BASO % 0.8 % (0.0-2.0); EOS # 0.2 (0.0-0.7); EOS % 2.8 % (0-4.0); GRAN % 68.6 % (42.2-75.2); HEMATOCRIT 49.5 % (37.0-47.0); HEMOGLOBIN 15.6 g/dl (12.5-16.0); LYMPH # 1.6 (1.2-3.4); LYMPH % 18.2 % (20.0-51.0); MEAN CELL VOLUME 87 fl (80.0-100.0); MEAN CORPUSCULAR HEMOGLOBIN 27 pg (27.0-31.0); MEAN CORPUSCULAR HGB CONC 32 g/dl (33.0-37.0); MEAN PLATELET VOLUME 9.7 fl (7.4-10.4); MONO # 0.8 (0.1-0.6); MONO % 9.1 % (1.7-9.3); PLATELET COUNT 444 K/mm3 (130-400); REDCELL DISTRIBUTION WIDTH-CV 15.4 % (11.5-14.5)
[2018-08-14 08:07] LABS: CALCIUM 9.3 mg/dL (8.4-10.2); CREATININE, serum 0.86 mg/dL (0.52-1.25); POTASSIUM 3.6 mmol/L (3.4-5.0)
[2018-08-14 09:23] VITALS: BP 122/80; PULSE 88; TEMP 98.1
[2018-08-14 11:13] VITALS: BP 97/54; PULSE 84; TEMP 98.3
[2018-08-14 16:00] VITALS: BP 95/45; PULSE 107; TEMP 98
[2018-08-14 20:16] VITALS: BP 117/57; PULSE 95; TEMP 98.1
[2018-08-15] VITALS (7 sets, daily range): BP systolic 88–115; BP diastolic 41–86; PULSE 79–117; TEMP 97.6–98.5
[2018-08-15 07:00] LABS: BASO # 0.1 (0.0-0.2); BASO % 0.6 % (0.0-2.0); EOS # 0.1 (0.0-0.7); EOS % 0.9 % (0-4.0); GRAN # 7.2 (1.4-6.5); GRAN % 73.4 % (42.2-75.2); HEMATOCRIT 48.5 % (37.0-47.0); HEMOGLOBIN 15.2 g/dl (12.5-16.0); LYMPH # 1.7 (1.2-3.4); LYMPH % 17.1 % (20.0-51.0); MEAN CELL VOLUME 87 fl (80.0-100.0); MEAN CORPUSCULAR HEMOGLOBIN 27 pg (27.0-31.0); MEAN CORPUSCULAR HGB CONC 31 g/dl (33.0-37.0); MEAN PLATELET VOLUME 9.4 fl (7.4-10.4); MONO # 0.7 (0.1-0.6); MONO % 7.5 % (1.7-9.3); PLATELET COUNT 445 K/mm3 (130-400); RED BLOOD COUNT 5.59 M/mm3 (4.10-5.30); REDCELL DISTRIBUTION WIDTH-CV 15.4 % (11.5-14.5)
[2018-08-15 07:14] LABS: CALCIUM 9.4 mg/dL (8.4-10.2); CREATININE, serum 0.83 mg/dL (0.52-1.25); POTASSIUM 3.4 mmol/L (3.4-5.0)
[2018-08-16] VITALS (7 sets, daily range): BP systolic 92–135; BP diastolic 49–73; PULSE 87–109; TEMP 97.7–98.4
[2018-08-16 07:53] LABS: BASO # 0.1 (0.0-0.2); BASO % 0.5 % (0.0-2.0); EOS # 0.1 (0.0-0.7); EOS % 1.4 % (0-4.0); GRAN # 7.1 (1.4-6.5); GRAN % 73.3 % (42.2-75.2); HEMATOCRIT 44.9 % (37.0-47.0); HEMOGLOBIN 14.1 g/dl (12.5-16.0); LYMPH # 1.6 (1.2-3.4); LYMPH % 16.8 % (20.0-51.0); MEAN CELL VOLUME 88 fl (80.0-100.0); MEAN CORPUSCULAR HEMOGLOBIN 28 pg (27.0-31.0); MEAN CORPUSCULAR HGB CONC 31 g/dl (33.0-37.0); MEAN PLATELET VOLUME 9.6 fl (7.4-10.4); MONO # 0.7 (0.1-0.6); MONO % 7.4 % (1.7-9.3); PLATELET COUNT 413 K/mm3 (130-400); RED BLOOD COUNT 5.12 M/mm3 (4.10-5.30); REDCELL DISTRIBUTION WIDTH-CV 15.5 % (11.5-14.5)
[2018-08-16 08:01] LABS: CALCIUM 9.2 mg/dL (8.4-10.2); CREATININE, serum 0.79 mg/dL (0.52-1.25); POTASSIUM 3.7 mmol/L (3.4-5.0)
[2018-08-17 04:01] VITALS: BP 135/87; PULSE 89; TEMP 98
[2018-08-17 07:14] VITALS: BP 118/46; PULSE 87; TEMP 98.7
[2018-08-17 07:17] LABS: BASO # 0.1 (0.0-0.2); BASO % 0.6 % (0.0-2.0); EOS # 0.1 (0.0-0.7); EOS % 0.7 % (0-4.0); GRAN # 8.2 (1.4-6.5); GRAN % 76.3 % (42.2-75.2); HEMATOCRIT 44.4 % (37.0-47.0); HEMOGLOBIN 13.9 g/dl (12.5-16.0); LYMPH # 1.6 (1.2-3.4); MEAN CELL VOLUME 87 fl (80.0-100.0); MEAN CORPUSCULAR HEMOGLOBIN 27 pg (27.0-31.0); MEAN CORPUSCULAR HGB CONC 31 g/dl (33.0-37.0); MEAN PLATELET VOLUME 9.8 fl (7.4-10.4); MONO # 0.7 (0.1-0.6); MONO % 6.6 % (1.7-9.3); PLATELET COUNT 473 K/mm3 (130-400); REDCELL DISTRIBUTION WIDTH-CV 15.4 % (11.5-14.5)
[2018-08-17 07:30] LABS: CALCIUM 9.4 mg/dL (8.4-10.2); CREATININE, serum 0.71 mg/dL (0.52-1.25)
[2018-08-17 11:02] VITALS: BP 99/51; PULSE 86; TEMP 98.2
[2018-08-17 15:38] VITALS: BP 115/64; PULSE 113; TEMP 97.8
[2018-08-17 19:11] VITALS: BP 126/79; PULSE 96; TEMP 97.6
[2018-08-18 00:42] VITALS: BP 113/67; PULSE 87; TEMP 97.5
[2018-08-18 03:44] VITALS: BP 125/64; PULSE 87; TEMP 97.6
[2018-08-18 06:24] LABS: BASO # 0.1 (0.0-0.2); BASO % 0.5 % (0.0-2.0); EOS # 0.1 (0.0-0.7); EOS % 0.8 % (0-4.0); GRAN # 7.5 (1.4-6.5); GRAN % 74.9 % (42.2-75.2); HEMATOCRIT 45.3 % (37.0-47.0); HEMOGLOBIN 13.9 g/dl (12.5-16.0); LYMPH # 1.6 (1.2-3.4); LYMPH % 15.4 % (20.0-51.0); MEAN CELL VOLUME 89 fl (80.0-100.0); MEAN CORPUSCULAR HEMOGLOBIN 27 pg (27.0-31.0); MEAN CORPUSCULAR HGB CONC 31 g/dl (33.0-37.0); MEAN PLATELET VOLUME 9.7 fl (7.4-10.4); MONO # 0.7 (0.1-0.6); MONO % 7.2 % (1.7-9.3); PLATELET COUNT 430 K/mm3 (130-400); RED BLOOD COUNT 5.09 M/mm3 (4.10-5.30); REDCELL DISTRIBUTION WIDTH-CV 15.7 % (11.5-14.5)
[2018-08-18 06:48] LABS: CALCIUM 9.2 mg/dL (8.4-10.2); CREATININE, serum 0.86 mg/dL (0.52-1.25); POTASSIUM 4.3 mmol/L (3.4-5.0)
[2018-08-18 07:30] VITALS: BP 108/62; PULSE 86; TEMP 98.2
[2018-08-18] MEDS ORDERED: PREDNISONE10 MG PO (09:36)
[2018-08-18 10:43] VITALS: BP 108/62; PULSE 86; TEMP 98.2
[2018-08-18 10:56] VITALS: BP 94/50; PULSE 99; TEMP 97.6
== END 2018-08-18 14:22 | DRG 194 ==
LOC: MEDICAL 15:12
PROVIDERS: Hospitalist; Physician Assistant
DX: J18.9 Pneumonia, unspecified organism (principal); J44.0 Chronic obstructive pulmonary disease with (acute) lower respiratory infection; E87.3 Alkalosis; Z66 Do not resuscitate; R19.7 Diarrhea, unspecified; G60.9 Hereditary and idiopathic neuropathy, unspecified; F41.9 Anxiety disorder, unspecified; Z85.110 Personal history of malignant carcinoid tumor of bronchus and lung; Z87.891 Personal history of nicotine dependence; I95.9 Hypotension, unspecified
CPT/HCPCS: 99223-AI; 99231-AI; 99233-AI; A4216; A9284; J0692; J1644; J1956; J2405; J7040; J7512; Q9967

== ENCOUNTER 2018-09-03 23:41 | Emergency (ER) | payer MEDICARE, MEDICAID ==
[~2018-09-03] VITALS: Ht 152.4 cm; Wt 77.3 kg
[~2018-09-03 23:41] MED LIST changes: +B-121000 MCG PO; +GAS RELIEF 8080 MG PO; +KLONOPIN 0.5MG0.5 MG PO; +MONODOX100 PO; +NYAMYC100000 U/G TP
[2018-09-03 23:47] VITALS: TEMP 99
[2018-09-04 00:31] LABS: BASO # 0.1 (0.0-0.2); BASO % 0.4 % (0.0-2.0); EOS # 0.2 (0.0-0.7); EOS % 1.8 % (0-4.0); GRAN # 11.1 (1.4-6.5); GRAN % 82.6 % (42.2-75.2); HEMATOCRIT 51.5 % (37.0-47.0); HEMOGLOBIN 15.8 g/dl (12.5-16.0); LYMPH # 0.8 (1.2-3.4); LYMPH % 5.9 % (20.0-51.0); MEAN CELL VOLUME 90 fl (80.0-100.0); MEAN CORPUSCULAR HEMOGLOBIN 28 pg (27.0-31.0); MEAN CORPUSCULAR HGB CONC 31 g/dl (33.0-37.0); MEAN PLATELET VOLUME 9.3 fl (7.4-10.4); MONO % 7.7 % (1.7-9.3); PLATELET COUNT 407 K/mm3 (130-400); RED BLOOD COUNT 5.74 M/mm3 (4.10-5.30); REDCELL DISTRIBUTION WIDTH-CV 15.4 % (11.5-14.5)
[2018-09-04 00:38] LABS: PROTHROMBIN TIME 11.3 SECONDS (9.7-12.8)
[2018-09-04 00:43] LABS: ALANINE AMINOTRANSFERASE 12 U/L (9-52); ALBUMIN 4.1 gm/dL (3.5-5.0); ALKALINE PHOSPHATASE 66 U/L (50-136); ANION GAP 8 mmol/L (7-16); AST,SGOT 17 U/L (15-37); BILIRUBIN,TOTAL 0.8 mg/dL (0.0-1.0); BLOOD UREA NITROGEN 16 mg/dL (7-17); CALCIUM 9.9 mg/dL (8.4-10.2); CARBON DIOXIDE 36 mmol/L (22-30); CHLORIDE 97 mmol/L (98-107); CREATININE, serum 0.87 mg/dL (0.52-1.25); GLUCOSE 141 mg/dL (74-106); POTASSIUM 4.2 mmol/L (3.4-5.0); SODIUM 140 mmol/L (137-145); TOTAL PROTEIN 7.3 gm/dL (6.4-8.2)
[2018-09-04 00:55] LABS: TROPONIN-I < 0.012 ng/mL (0.000-0.034)
[2018-09-04 01:13] LABS: COLLECTION METHOD CLEAN CATCH
[2018-09-04 01:26] LABS: MUCOUS Present /lpf; PH 5 (5-8); URINE APPEARANCE Hazy; URINE BACTERIA None Seen /hpf; URINE BILIRUBIN Negative (NEGATIVE); URINE BLOOD 2+ (NEGATIVE); URINE COLOR Yellow; URINE GLUCOSE Negative (NEGATIVE); URINE KETONE Negative (NEGATIVE); URINE LEUKOCYTE ESTERASE 1+ (NEGATIVE); URINE NITRATE Negative (NEGATIVE); URINE PROTEIN(semi-quant) 1+ (NEGATIVE)
[2018-09-04 01:47] LABS: ARTERIAL BLD GAS O2 SATURATION 92.9 % (92-100); ARTERIAL BLD GAS TCO2 CT 34.1; ARTERIAL BLOOD GAS BASE EXCESS 3.5 (-2-2); ARTERIAL BLOOD GAS HCO3 32.1 meq/L (22-26); ARTERIAL BLOOD GAS PCO2 65.6 mmHg (35-45); ARTERIAL BLOOD GAS PO2 70.3 mmHg (80-100); ARTERIAL BLOOD GAS pH 7.31 (7.35-7.45)
[2018-09-04] MEDS ORDERED: CARDIZEM CD 12120 MG PO (01:52)
[2018-09-04 03:47] VITALS: BP 123/73
[2018-09-04 04:16] VITALS: PULSE 112
== END 2018-09-04 04:18 | disposition short-term general hospital (02) ==
LOC: COL.ER 23:41
PROVIDERS: Emergency Medicine
DX: J96.00 Acute respiratory failure, unspecified whether with hypoxia or hypercapnia (principal); J44.1 Chronic obstructive pulmonary disease with (acute) exacerbation; F41.9 Anxiety disorder, unspecified; G62.9 Polyneuropathy, unspecified; Z95.5 Presence of coronary angioplasty implant and graft; Z87.891 Personal history of nicotine dependence; Z99.81 Dependence on supplemental oxygen; Z85.118 Personal history of other malignant neoplasm of bronchus and lung
CPT/HCPCS: J2060; J2543; J7030